=== PATIENT | female | born 1995 ===

== ENCOUNTER 2018-04-10 05:43 | Day surgery (SDC) | payer OTHER, SELFPAY ==
[2018-04-06 09:33] VITALS: BMI 29.3
[2018-04-10] VITALS (7 sets, daily range): BP systolic 90–113; BP diastolic 58–72; PULSE 61–65; RESP 11–16; TEMP 36.4–37.6; O2SAT 99–100; BMI 29.3
--- NOTE | 2018-04-10 | DI.RAD.S_ITS ---
PROCEDURE: XR ANKLE LT 2V INDICATIONS: LEFT ANKLE HARDWARE REMOVAL TECHNIQUE: Single view of the ankle were acquired. COMPARISON: [facility] [place], [place], XR ANKLE 3 VIEWS WEIGHT BEARING LEFT, 02/20/2018, 10:49. FINDINGS: Single intraoperative fluoroscopic view of the left ankle demonstrates interval removal of 2 surgical screws from the medial malleolus. Screw tracks are again noted. There is also a fixation plate and multiple fixation screws in the visualized distal fibular diaphysis. IMPRESSION: 1. Limited fluoroscopic view of the ankle demonstrates interval removal of the medial malleolus fixation screws. Dictated by: Dutch Bowen M.D. on 04/10/2018 at 8:36 Approved by: Dutch Bowen M.D. on 04/10/2018 at 8:39
[2018-04-10] MEDS: LACTATED RINGERS 1,000 ML 42 ML IV (06:55)
--- NOTE | 2018-04-10 07:07 | PM.PREOP ---
Pre-operative Note Interval Note History & Physical reviewed/Exam performed by Physician: Yes Changes to H&P: Yes H&P completed within 30 days and has changed as indicated here:: New agent be performed today.
--- NOTE | 2018-04-10 07:14 | P.HP_ITS ---
History of Present Illness Date Patient Seen: 04/10/18 Time Patient Seen: 07:07 Chief complaint: [id number] LEFT ANKLE Narrative: Patient is a 22-year-old female who presents for left medial ankle pain. Patient had a history of a traumatic left bimalleolar ankle fracture in January of 2016. She had fracture fixation at [facility] an uneventful postoperative course. She presents with persistent medial ankle pain that is aching and throbbing and worse when weight-bearing and going from sitting to standing. She denies any recent injuries. She does not smoke she does not have diabetes. She endorses poor balance weakness pain aching and throbbing and is interested in hardware removal. Additionally she formed a keloid scar at her medial incision would like this revised. She was originally scheduled for hardware removal at the surgery Center but was found to be and has been rescheduled for the hospital for procedure under local anesthesia. Discussed postponing surgery until after delivery but the patient is quite bothered by her pain and would like to proceed now. Patient History Medical History Ankle fracture, left (Acute) HIRAL (obstructive sleep apnea) (Acute) Family & Social History Family History: Reviewed 04/10/18 by Flor Castaneda MD Tobacco & Substance use: Smoking Status Never smoker alcohol intake current alcohol intake frequency a few times a week Meds Home Medications Medication Instructions Recorded Confirmed Type No Known Home Medications 04/10/18 04/10/18 History Allergies Allergy/AdvReac Type Severity Reaction Status Date / Time peanut Allergy Severe Difficulty Verified 04/10/18 06:48 Breathing latex Allergy Hives Verified 04/10/18 06:48 Raw egg Allergy Severe Hives Uncoded 04/10/18 06:48 Review of Systems Review of Systems Denies fevers chills. Negative for night sweats. Positive for All systems reviewed & are unremarkable except as noted in HPI and below Exam Narrative Exam Narrative: General exam: Alert oriented female in no acute distress. Oriented x3 Cardiovascular. Regular rate and rhythm Respiratory: Lungs clear to auscultation bilaterally Abdomen: Nontender and soft skin: Keloid scar left medial ankle Gait: Full weight-bearing no assistive devices Musculoskeletal: Full range of motion and no limitations of bilateral upper extremities. Right lower extremity shows grossly normal alignment range of motion strength and stability but no swelling atrophy or effusion. Left lower extremity shows grossly normal alignment range of motion strength and stability with no swelling atrophy or effusion. 5/5 dorsiflexion plantar flexion inversion eversion. No tenderness along the distal fibula Achilles or 5th metatarsal base. The prominent keloid scar over the medial malleolus. No erythema or redness or signs or symptoms of infection. Screw heads are palpable with tenderness just distal to the medial malleolus. No tenderness along the posterior tibialis tendon. Lateral incision is well-healed and much less prominent keloid. Sensation grossly intact in the superficial peroneal, deep peroneal, sural, saphenous nerve distributions. Calf is soft. Assessment & Plan (1) Pain due to internal orthopedic prosthetic devices, implants and grafts, subsequent encounter: Current visit: Yes Status: Acute (2) Keloid scar: Current visit: Yes Status: Acute Plan: Assessment/Plan Narrative: The patient is a 22-year-old female with a history of left ankle fracture as she has pain at the medial screw head site and an unsightly keloid scar. Discussed hardware removal of the 2 medial malleolar screws as well as excision and keloid revision. The patient has supple skin in this area and should be available to excision and closure. Patient understands and agrees with the plan. Discussed the hardware may break during removal and this happens the remnants that remained buried in the bone are not typically symptomatic. We also discussed she may have articular damage that would not be improved by hardware removal. The patient understands and agrees with this plan. She would like keloid excision and hardware removal. She understands she may reform a keloid with additional surgery as well. The risks benefits alternatives to the procedure were explained to the patient detail including but not limited to infection, nonunion, malunion, persistent pain, damage to nerves and vessels, wound healing problems and additional keloid formation. Discussed DVT and pulmonary embolism symptomatic hardware and the patient has elected to proceed with surgery. She will be full weight-bearing following the procedure. Consent was signed today. Time Spent With Patient Time with patient: less than 15 minutes Quality VTE Deep Vein Thrombosis/Pulmonary Embolism Present on Admission: No
--- NOTE | 2018-04-10 07:45 | PM.OP.1 ---
Operative Date/Time/Diagnoses Date of procedure: 04/10/18 Time of procedure: 07:45 Pre-op diagnosis: 1. Painful retained orthopedic hardware left ankle 2. Hypertrophic, keloid scar left medial ankle 3. History of left ankle bimalleolar fracture Post-op diagnosis: same Procedure & Clinicians Procedure: 1. Hardware removal medial left ankle cpt code 44890 2. Excision and revision of left medial ankle keloid scar 2.6 cm to 5 cm CPT code 45645 Same procedure as scheduled: Yes Indications: The patient is a 22-year-old female with history of a bimalleolar ankle fracture in 2016. She had an open reduction internal fixation at [facility]. Patient has persistent medial ankle pain at her prominent medial screws and has requested hardware removal. She also has a keloid scar at the area of this incision and has requested revision of her keloid scar. The risks benefits and alternatives of the procedure were discussed with the patient in detail including infection, nonunion, malunion, broken hardware, repeat keloid formation, wound healing problems, DVT, PE, complications with general anesthesia. Patient understands and agrees to the risks and consent was signed. Surgeon: Flor Castaneda Click Yes if Unassisted: Yes Anesthesia Type: Spinal and Local Operative Notes Findings: Retained 3.5 mm screws medial malleolus x2 Keloid scar left medial ankle approximately 3 cm by 2.5 cm Closure Type: primary Specimen(s): none sent Implants & Drains: None Applied: other (Soft dressing) Estimated Blood Loss (mL): 5 Blood products transfused: none Tourniquet time (min): 26 Procedure in detail: Patient was seen in the preoperative area where her site of surgery was marked and informed consent confirmed. All questions were answered. Patient was then brought to the operating room by the anesthesia team she has position on the operative table and spinal analgesia was administered by the anesthesia team. Patient was then positioned supine on the table. A well-padded thigh tourniquet was placed on the left lower extremity and all bony prominences were well padded. The left lower extremity was prepped and draped in the standard sterile fashion with a 3 step prep including alcohol swab, chlorhexidine scrub brush followed by chlorhexidine prep. A formal time-out was performed confirming the patient's side and site of surgery administration of appropriate preoperative antibiotics. All were in agreement. Appropriate instruments were available. Approximately 15 cc of 0.25% Marcaine with epinephrine were used as local anesthesia infiltrated around the medial keloid scar and medial malleolus. Next an Esmarch bandage was utilized for exsanguination and the tourniquet was raised on the thigh to 250 mm of mercury and stayed there for approximately 26 min. The left medial keloid was ellipsed out and excised. Next the 2 medial malleolus screw heads were located and identified. Edgard screw heads were prominent. These were cleared off and a small frag screwdriver was used to remove the 2 medial screws in their entirety. The intraoperative fluoroscopic image was utilized to confirm hardware removal from the medial ankle. Once this was done the wound was irrigated with copious saline and closed in layers with 3 0 Vicryl and 4 0 Monocryl and Steri-Strips. Compressive dressing with Xeroform gauze Kerlix and an Faheem wrap was placed and the tourniquet was released. Ft and toes pinked up well with palpable pulses. All counts were correct. Anesthesia was terminated and the patient was placed back onto the stretcher and taken to the PACU in good condition. There were no immediate complications from this procedure. Complications: none Condition: stable Disposition: PACU Plan for aftercare: Weight bear as tolerated left lower extremity. Keep dressing clean dry and intact until follow-up. Keep Steri-Strips in place.
[2018-04-10] MEDS: CEFAZOLIN 2 GM/100 ML FROZ.PIGGY IV (07:50)
--- NOTE | 2018-04-10 08:12 | SUR.OPER ---
Supine on padded OR bed, head on pillow, arms secured on padded arm boards at <90 degrees abduction, legs uncrossed, safety belt at thigh, tape over blanket over lower legs.
[2018-04-10] MEDS: BUPIVACAINE 0.25% W/ EPI VIAL 50 ML INJ (08:30)
[2018-04-10] MEDS: HYDROCODONE/ACET 5/325 TABLET 1 TAB PO (09:26)
--- NOTE | 2018-04-10 09:45 | SUR.PHASEII ---
pt tolerated oral fluids and a snack, resting quietly.
== END 2018-04-10 10:02 ==
PROVIDERS: Visit Provider Orthopaedic Surgery Foot and Ankle Surgery
PROC: (CPT 20680; principal; 2018-04-10 07:45)
DX: L91.0 Hypertrophic scar (principal); T84.84XA Pain due to internal orthopedic prosthetic devices, implants and grafts, initial encounter; G47.33 Obstructive sleep apnea (adult) (pediatric)
CPT/HCPCS: 20680; 73600; 76000; J0690; J2704